=== PATIENT | female | born 1960 | race Caucasian/White ===

== ENCOUNTER 2016-09-29 16:23 | Emergency (ER) | payer SELFPAY ==
[~2016-09-29] VITALS: Ht 170.2 cm; Wt 72.3 kg
[2016-09-29] MEDS ORDERED: ASPIRIN 81 MG TABLET CHEW PO ONE (17:00)
[2016-09-29 17:30] LABS: BLOOD UREA NITROGEN 9 mg/dL (7-18)
[2016-09-29 17:36] LABS: IS PT STATUS REG ER OR PRE ER? YES
[2016-09-29] MEDS ORDERED: ASPIRIN 81 MG TABLET CHEW ONE (17:52)
[2016-09-29] MEDS ORDERED: FENTANYL PF 100 MCG/2ML ONE (18:07)
[2016-09-29] MEDS ORDERED: FENTANYL PF 100 MCG/2ML IM ONE (18:30)
[2016-09-29 19:03] VITALS: BP 140/80
== END 2016-09-29 19:04 | disposition home or self-care (01) ==
LOC: ED 19:00
DX: M75.32 Calcific tendinitis of left shoulder (principal)
CPT/HCPCS: 36415; 71020; 73030; 80048; 82040; 84484; 85025; 93005; 96372; 99285; J3010

== ENCOUNTER 2018-09-13 21:09 | Emergency (ER) | payer SELFPAY ==
[~2018-09-13] VITALS: Ht 170.2 cm; Wt 77.2 kg
[2018-09-13 21:31] VITALS: BP 138/89
[2018-09-13] MEDS ORDERED: DEXAMETHASONE 4 MG TABLET PO ONE (22:04)
[2018-09-13] MEDS ORDERED: IBUPROFEN 800 MG TABLET PO ONE (22:04)
[2018-09-13] MEDS ORDERED: IBUPROFEN 200 MG TABLET ONE (22:08)
[2018-09-13] MEDS ORDERED: DEXAMETHASONE 4 MG TABLET ONE (22:08)
== END 2018-09-13 23:09 | disposition home or self-care (01) ==
LOC: ED 23:03
DX: J02.0 Streptococcal pharyngitis (principal); J02.8 Acute pharyngitis due to other specified organisms; B97.89 Other viral agents as the cause of diseases classified elsewhere; F17.210 Nicotine dependence, cigarettes, uncomplicated
CPT/HCPCS: 71046; 99283